=== PATIENT | male | born 1980 | race African-American/Black ===

== ENCOUNTER 2016-05-29 12:14 | Emergency (ER) | payer SELFPAY ==
[2016-05-29] MEDS ORDERED: DIAZEPAM 5 MG TABLET PO ONE (12:44)
[2016-05-29] MEDS ORDERED: HYDROCODONE/APAP 7.5/325MG TABLET PO ONE (12:44)
--- NOTE | 2016-05-29 12:52 | Emergency Department Record ---
History of Present Illness - General Chief Complaint: Fall Injury Stated Complaint: FALL/BACK PAIN Time Seen by Provider: 05/29/16 12:43 Source: Patient Mode of Arrival: Wheelchair Limitations: No limitations - History of Present Illness Initial Comments: 35 yo male presents to ED with a CC of low back pain following a fall approximately 45 minutes ago. Patient reports that he slipped while attempting to lift a heavy piece of luggage from a truck, slipped on ice resulting in fall. Patient denies health problems at his baseline, and denies taking any medication for his pain symptoms prior to arrival. Patient denies other injury. MD Complaint: Fall Onset/Timin -: Hour(s) Fall From: Standing When Fall Occurred: 1 hour [employer] Fall Witnessed: No Place Fall Occurred: Home, Other Loss of Consciousness: None Prolonged Down Time?: No Symptoms Prior to Fall: None Location: Back, Buttocks Severity: Severe Severity scale (1-10): 10 Quality: Aching Associated Symptoms: Denies - [place] Coma Scale Eye Response: (4) Open spontaneously Motor Response: (6) Obeys commands Verbal Response: (5) Oriented [place] Total: 15 - Related Data Home Medications Medication Instructions Recorded Confirmed Last Taken No Home Med [NO HOME MEDS] 05/29/16 05/29/16 Unknown Allergies Allergy/AdvReac Type Severity Reaction Status Date / Time eszopiclone [From Lunesta] Allergy Severe SWELLING Verified 05/29/16 12:29 OF THE TONGUE ketorolac tromethamine Allergy Severe HIVES Verified 05/29/16 12:29 [From Toradol] zolpidem tartrate Allergy Severe SWELLING Verified 05/29/16 12:29 [From Ambien] OF THE TONGUE NSAIDS (Non-Steroidal AdvReac Severe stomach Verified 05/29/16 12:29 Anti-Inflamma issues prochlorperazine AdvReac Severe MIGRAINES Verified 05/29/16 12:29 [From Compazine] prochlorperazine edisylate AdvReac Severe MIGRAINES Verified 05/29/16 12:29 [From Compazine] prochlorperazine maleate AdvReac Severe MIGRAINES Verified 05/29/16 12:29 [From Compazine] Travel Screening - Travel/Exposure Within Last 30 Days Have you traveled within the last 30 days?: Yes Location Detail:: from [place] - Travel Symptoms Symptom Screening: None Review of Systems Constitutional: Denies: Chills, Fever, Malaise, Night sweats Eyes: Denies: Eye discharge, Eye pain ENT: Denies: Congestion, Ear pain, Epistaxis Respiratory: Denies: Cough, Dyspnea Cardiovascular: Denies: Chest pain, Dyspnea on exertion Endocrine: Denies: Fatigue, Heat or cold intolerance Gastrointestinal: Denies: Abdominal pain, Nausea, Vomiting Genitourinary: Denies: Hematuria, Retention Musculoskeletal: Reports: Back pain. Denies: Arthralgia, Gout, Joint swelling Skin: Denies: Bruising, Change in color Neurological: Denies: Abnormal gait, Confusion, Headache, Seizure Psychiatric: Denies: Anxiety Hematological/Lymphatic: Denies: Anemia, Blood Clots Past Medical History - SOCIAL HISTORY Smoking Status: Never smoker Alcohol Use: None Drug Use: None - RESPIRATORY Hx Respiratory Disorders: No - CARDIOVASCULAR Hx Cardio Disorders: No - NEURO Hx Neuro Disorders: No - GI Hx GI Disorders: No - Hx Genitourinary Disorders: No - ENDOCRINE Hx Endocrine Disorders: No - MUSCULOSKELETAL Hx Musculoskeletal Disorders: Yes Comment:: DDD - PSYCH Hx Psych Problems: No - HEMATOLOGY/ONCOLOGY Hx Hematology/Oncology Disorders: No Family Medical History Any Significant Family History?: No Physical Exam - General General Appearance: Alert, Oriented x3, Cooperative, Moderate distress (appears in pain on examination) Limitations: No limitations - Head Head exam: Atraumatic, Normocephalic, Normal inspection Head exam detail: negative: Abrasion, Contusion, Martin's sign, General tenderness, Hematoma, Laceration - Eye Eye exam: Normal appearance. negative: Conjunctival injection, Periorbital swelling, Periorbital tenderness, Scleral icterus - ENT Ear exam: negative: Auricular hematoma, Auricular trauma Nasal Exam: negative: Active bleeding, Discharge, Dried blood, Foreign body Mouth exam: negative: Drooling, Laceration, Muffled voice, Tongue elevation - Neck Neck exam: Normal inspection. negative: Meningismus, Tenderness - Respiratory Respiratory exam: Normal lung sounds bilaterally. negative: Respiratory distress, Rhonchi, Stridor, Wheezes - Cardiovascular Cardiovascular Exam: Regular rate, Normal rhythm, Normal heart sounds - GI/Abdominal GI/Abdominal exam: Soft. negative: Rebound, Rigid, Tenderness - Rectal Rectal exam: Deferred - exam: Deferred - Extremities Extremities exam: Normal inspection. negative: Pedal edema, Tenderness - Back Back exam: Reports: Paraspinal tenderness, Vertebral tenderness, Other (TTP from the upper lumbar spine to the tailbone region). Denies: CVA tenderness (R) , CVA tenderness (L) - Neurological Neurological exam: Alert, Normal gait, Oriented X3 - Psychiatric Psychiatric exam: Normal affect, Normal mood - Skin Skin exam: Normal color. negative: Abrasion Type of lesion: negative: abrasion Course Vital Signs 05/29/16 12:21 Temperature 98.2 F Pulse Rate 111 H Respiratory 18 Rate Blood Pressure 133/113 Pulse Ox 100 - Reevaluation(s) Reevaluation #1: 05/29/16 12:53 MAPS reviewed: 05/23/16: [place] #20 tablets [facility] Valium 5 mg #15 [facility] 05/16/16 [place] #10 [facility] Valium #10 [facility] 05/09/16 [place] #10 tablets [facility] Valium #10 tablets [facility] 05/02/16 Valium #20 tablets [facility] Medical records reviewed from [facility]: 05/09/16 Negative Lumbar spine films 05/16/16 CT Lumbar Spine: Unchanged from 12/14/2014, Degenerative disc disease changes Reevaluation #2: 05/29/16 13:37 Lumbar Spine: DJD, nothing acute. Patient was updated on her radiology results, informed regarding MAPS findings. [facility] were notified as well regarding suspicious prescription activity. Patient appears stable for discharge at this time. Disposition Disposition: Discharge Clinical Impression: Fall Qualifiers: Encounter type: initial encounter Qualified Code(s): W19.XXXA - Unspecified fall, initial encounter Contusion of back Qualifiers: Encounter type: initial encounter Laterality: unspecified laterality Qualified Code(s): S20.229A - Contusion of unspecified back wall of thorax, initial encounter Disposition: Home, Self-Care Condition: (2) Stable Instructions: Contusion in Adults (ED) Additional Instructions: Return to ED if your symptoms worsen or if you have any concerns. Follow-up with your family doctor in 3-5 days as directed. Forms: Patient Portal Access Time of Disposition: 13:39
== END 2016-05-29 13:45 | disposition home or self-care (01) ==
LOC: ER 12:14
DX: S20.229A Contusion of unspecified back wall of thorax, initial encounter (principal); W00.0XXA Fall on same level due to ice and snow, initial encounter; Y92.009 Unspecified place in unspecified non-institutional (private) residence as the place of occurrence of the external cause
CPT/HCPCS: 72110; 99283